=== PATIENT | male | born 1995 | race Caucasian/White ===

== ENCOUNTER 2021-02-14 13:31 | Emergency (ER) | payer OTHER ==
[~2021-02-14] VITALS: Ht 175.3 cm; Wt 79.4 kg
[2021-02-14] MEDS ORDERED: PREDNISONE50 MG PO (14:02)
[2021-02-14] MEDS ORDERED: DIPHENHIST50 MG PO (14:02)
[2021-02-14 14:15] VITALS: BP 141/66
== END 2021-02-14 14:17 | disposition home or self-care (01) ==
LOC: M.ERS 13:31
DX: L23.9 Allergic contact dermatitis, unspecified cause (principal)